=== PATIENT | female | born 1945 | race Hispanic/Latino ===

== ENCOUNTER 2021-06-30 15:35 | Observation (INO) | payer MEDICARE ==
[~2021-06-30] VITALS: Ht 160 cm; Wt 72.6 kg
[2021-06-30 15:58] LABS: BASOPHILS % (AUTO) 0.7 % (0.0-5.0); EOSINOPHILS % (AUTO) 1.1 % (0.0-8.0); HEMATOCRIT 33.8 % (36-48); LYMPHOCYTES % (AUTO) 26.3 % (21.0-51.0); MEAN CORPUSCULAR HEMOGLOBIN 29.8 pg (27.0-33.0); MEAN CORPUSCULAR HGB CONC 33.4 g/dL (32.0-36.0); MEAN CORPUSCULAR VOLUME 89.2 fL (79-99); MONOCYTES % (AUTO) 6.3 % (3.0-13.0); NEUTROPHILS % (AUTO) 65.3 % (40.0-77.0); PLATELET COUNT (AUTO) 238 K/uL (130-400); RED BLOOD CELL COUNT(AUTO) 3.79 MIL/uL (4.00-5.50); RED CELL DISTRIBUTION WIDTH 12.6 % (11.0-15.5); WHITE BLOOD COUNT (AUTO) 7.6 K/uL (4.8-10.8)
[2021-06-30 16:13] LABS: PROTHROMBIN TIME 10.9 SEC (9.6-11.6)
[2021-06-30 16:16] LABS: ALBUMIN 3.5 g/dL (3.5-5.0); BILIRUBIN,TOTAL 0.6 mg/dL (0.2-1.0); POTASSIUM 4.4 mmol/L (3.5-5.1); TOTAL PROTEIN, SERUM 7.4 g/dL (6.0-8.3)
[2021-06-30 16:17] LABS: B-TYPE NATRIURETIC PEPTIDE 29 pg/mL (0-100)
[2021-06-30 16:45] VITALS: BP 142/64
[2021-06-30] MEDS: 0.9%NACL 1000ML 1,000 ML IV SCH ×2 (17:05→17:09)
[2021-06-30] MEDS: MORPHINE 2 MG SYG IVP SCH ×2 (17:05→17:08)
[2021-06-30] MEDS: ONDANSETRON 4MG INJ IVP SCH ×2 (17:06→17:08)
[2021-06-30] MEDS: ASPIRIN 325MG TAB PO SCH ×2 (17:06→17:09)
[2021-06-30 18:27] VITALS: BP 139/64
[2021-06-30 20:07] VITALS: BP 147/71
[2021-06-30] MEDS ORDERED: ONDANSETRON 4MG INJ IVP PRN (20:30)
[2021-06-30] MEDS ORDERED: ACETAMINOPHEN 325 MG TAB PO PRN (20:30)
[2021-06-30 21:33] LABS: APPEARANCE,URINE Clear (CLEAR); BILIRUBIN,URINE Negative (NEGATIVE); COLOR,URINE Yellow (YELLOW); GLUCOSE, URINE (UA) >=1000 mg/dL (NEGATIVE); KETONES,URINE Negative (NEGATIVE); LEUKOCYTE ESTERASE ,URINE Negative (NEGATIVE); NITRATE,URINE Negative (NEGATIVE); OCCULT BLOOD,URINE Negative (NEGATIVE); PROTEIN,URINE POS 2+ mg/dL (NEGATIVE)
[2021-06-30 21:40] LABS: BACTERIA,URINE Rare /HPF (None Seen); RBC,URINE 0-1 /HPF (0-1); SQUAMOUS EPITHELIAL CELL,UR Rare /HPF (0-2)
[2021-06-30] MEDS: METOPROLOL TARTRATE 25 MG TAB PO SCH (21:51)
[2021-06-30] MEDS: MORPHINE 2 MG SYG IVP PRN (21:51)
[2021-06-30] MEDS: ACETAMINOPHEN 325 MG TAB PO PRN (21:52)
[2021-07-01] VITALS (7 sets, daily range): BP systolic 120–145; BP diastolic 55–72
[2021-07-01] MEDS ORDERED: LISI1TAB51 PO (05:28)
[2021-07-01] MEDS ORDERED: CA/D1TAB7 PO (05:28)
[2021-07-01] MEDS ORDERED: GABA600T10 PO (05:28)
[2021-07-01] MEDS ORDERED: GABA-533 PO (05:28)
[2021-07-01] MEDS ORDERED: PRAS10TA9 PO (05:28)
[2021-07-01] MEDS ORDERED: PREG50CA63 PO (05:28)
[2021-07-01] MEDS ORDERED: LISI20TA24 PO (05:28)
[2021-07-01] MEDS ORDERED: ATOR40TA69 PO (05:28)
[2021-07-01] MEDS ORDERED: ALEN35TA53 PO (05:28)
[2021-07-01] MEDS ORDERED: AMLO-257 PO (05:28)
[2021-07-01] MEDS ORDERED: AEC81 PO (05:28)
[2021-07-01] MEDS ORDERED: METF-446 PO (05:28)
[2021-07-01] MEDS ORDERED: INSU100V12 SQ ×2 (05:28)
[2021-07-01] MEDS ORDERED: LEVO-172 PO (05:28)
[2021-07-01] MEDS: ACETAMINOPHEN 325 MG TAB PO PRN (07:19)
[2021-07-01] MEDS ORDERED: ENOXAPARIN SODIUM 30 MG/0.3 ML SQ SCH (09:00)
[2021-07-01] MEDS: MORPHINE 2 MG SYG IVP PRN (09:25)
[2021-07-01] MEDS: METOPROLOL TARTRATE 25 MG TAB PO SCH (09:48)
[2021-07-01] MEDS ORDERED: METFORMIN HCL 500 MG TABLET PO SCH (17:00)
[2021-07-01] MEDS ORDERED: INSULIN GLARGINE 100 UNITS/ML 10 ML VIAL SQ SCH (21:00)
[2021-07-01] MEDS ORDERED: LISINOPRIL 20 MG TABLET PO SCH (21:00)
[2021-07-01] MEDS ORDERED: GABAPENTIN 300 MG CAPSULE PO SCH (21:00)
[2021-07-01] MEDS ORDERED: ATORVASTATIN 40 MG TABLET PO SCH (21:00)
[2021-07-02] MEDS ORDERED: LEVOTHYROXINE 100 MCG TABLET PO SCH (06:30)
[2021-07-02] MEDS ORDERED: PRASUGREL HCL 10 MG TABLET PO SCH (09:00)
[2021-07-02] MEDS ORDERED: PREGABALIN 25 MG CAP PO SCH (09:00)
[2021-07-02] MEDS ORDERED: AMLODIPINE 5 MG TAB PO SCH (09:00)
[2021-07-02] MEDS ORDERED: ASPIRIN 81 MG EC TAB PO SCH (09:00)
[2021-07-02] MEDS ORDERED: METOPROLOL SUCCINATE 50 MG TAB.SR.24H PO SCH (09:00)
[2021-07-02] MEDS ORDERED: LISINOPRIL 20 MG TABLET PO SCH (09:00)
[2021-07-02] MEDS ORDERED: CA 600MG+VIT D 400 UNIT TAB 1 TAB TABLET PO SCH (09:00)
[2021-07-02] MEDS ORDERED: INSULIN GLARGINE 100 UNITS/ML 10 ML VIAL SQ SCH (09:00)
[2021-07-02] MEDS ORDERED: GABAPENTIN 300 MG CAPSULE PO SCH (12:00)
== END 2021-07-01 20:08 | disposition home or self-care (01) ==
LOC: EDH 15:35 → INTOOBSV 17:45 → EDHIP 17:45
PROVIDERS: ADMIT Internal Medicine Infectious Disease; ATTEND Internal Medicine Infectious Disease
DX: R07.89 Other chest pain (principal); I10 Essential (primary) hypertension; E11.65 Type 2 diabetes mellitus with hyperglycemia; E03.9 Hypothyroidism, unspecified; E78.5 Hyperlipidemia, unspecified; M54.5 Low back pain; G89.29 Other chronic pain; I25.10 Atherosclerotic heart disease of native coronary artery without angina pectoris; E78.00 Pure hypercholesterolemia, unspecified; K27.9 Peptic ulcer, site unspecified, unspecified as acute or chronic, without hemorrhage or perforation; Z79.4 Long term (current) use of insulin; Z87.11 Personal history of peptic ulcer disease; Z90.710 Acquired absence of both cervix and uterus; Z95.5 Presence of coronary angioplasty implant and graft; Z98.1 Arthrodesis status; Z79.899 Other long term (current) drug therapy; Z98.890 Other specified postprocedural states; Z95.1 Presence of aortocoronary bypass graft
CPT/HCPCS: 36415 ×2; 71045; 80053; 81001; 82550 ×3; 82948 ×2; 83874 ×2; 83880; 84484 ×3; 85025; 85610; 85730; 93005 ×2; 96361; 96372; 96374; 96375; 96376 ×2; 99285; G0378 ×4; J1650; J2405 ×2; J7030